=== PATIENT | female | born 1965 | race Caucasian/White ===

== ENCOUNTER 2017-07-03 09:13 | Outpatient (CLI) ==
--- NOTE | 2017-07-03 09:44 | DI ---
EXAM: Two views of the chest. History: Chronic obstructive pulmonary disease, history smoking Comparison: Chest radiograph 03/07/2014 Findings: Heart size is normal. Minimal infiltrates are seen within the right middle lobe and lingul a probably chronic in nature. Hyperinflation with increase in retrosternal clear space. No appreciab le pleural fluid and no pneumothorax. No acute osseous abnormalities. Impression: 1. Emphysema. 2. Minimal right middle lobe and lingular infiltrates probably related to a chronic infectious or in flammatory process. Consider mycobacterial avium infection
--- NOTE | 2017-07-03 09:54 | CT ---
EXAM: CT of the lumbar spine without contrast History: Right-sided back pain. Technique: Multiplanar CT images through the lumbar spine were obtained without the administration o f IV contrast Findings: Punctate 1 mm nonobstructing bilateral renal calculi. Partially visualized benign fat cont aining lesion within the superior pole of the left kidney. No acute fracture or subluxation of the lumbar spine. Mild multilevel degenerative disc space narrow ing with a few small anterior osteophytes. Partial sacralization of L6 on the right. There are six l umbar type vertebral bodies . L1-L2: No significant disc bulge, central canal stenosis or neural foraminal narrowing. L2-L3: No significant disc bulge, central canal stenosis or neural foraminal narrowing. L3-L4: No significant disc bulge, central canal stenosis or neural foraminal narrowing. L4-L5: Small disc bulge effacing the anterior thecal sac with no significant central canal stenosis or bony neural foraminal narrowing. L5-L6: Small disc bulge effacing the anterior thecal sac with no significant central canal stenosis. Mild to moderate bilateral bony neural foraminal narrowing secondary to ligamentous and facet hyper trophy. L6, S1: No significant disc bulge or central canal stenosis. There is thickening of the exiting left nerve root.. Mild to moderate bilateral neural foraminal narrowing. Impression: 1. No acute osseous abnormality of the lumbar spine. 2. Partial sacralization of L6 on the right. 3. Level by level analysis as detailed above. 4. Thickening of the exiting left sided nerve root at L6, S1 could represent peripheral nerve sheath tumor and recommend further evaluation with MRI
== END 2017-07-03 09:14 | disposition home or self-care (01) ==
LOC: RAD 09:13
PROVIDERS: ATTEND Internal Medicine
DX: M54.41 Lumbago with sciatica, right side (principal); J44.9 Chronic obstructive pulmonary disease, unspecified; F17.210 Nicotine dependence, cigarettes, uncomplicated

== ENCOUNTER 2017-07-13 08:27 | Outpatient (CLI) ==
[2017-07-13 09:05] LABS: CREATININE 0.78 mg/dL (0.60-1.30)
--- NOTE | 2017-07-13 10:28 | CT ---
EXAM: CT chest with contrast. HISTORY: Chronic obstructive pulmonary disease. Shortness of breath. COMPARISON: Radiograph 07/03/2017. Chest CT 04/21/2008. TECHNIQUE: Multiple axial images of the chest were obtained following intravenous administration of 75 mL of Omnipaque 350, low osmolar. Images were reformatted in the sagittal and coronal planes. FINDINGS: No mediastinal, hilar, or axillary lymphadenopathy identified. Heart size is normal. The re is no pericardial effusion. Centrilobular and paraseptal emphysematous changes are present, greatest in the upper lobes. Bronchi al thickening and nodular densities are seen in the right middle lobe and to a lesser extent the ermelinda cent anterior right upper lobe and the lingula. No pleural effusion or pneumothorax detected. Limited images of the upper abdomen demonstrate hepatic cystic lesions measuring up to 1 cm on axial images 54 and 55. No acute osseous abnormality detected. IMPRESSION: 1. Bronchial thickening and nodular densities in the right middle lobe, right upper lobe and lingula most likely infectious or inflammatory. Consider follow-up CT in 3-6 months for reassessment. 2. Emphysema. 3. Probable hepatic cysts. Correlate with ultrasound.
== END 2017-07-13 08:28 | disposition home or self-care (01) ==
LOC: RAD 08:27
PROVIDERS: ATTEND Internal Medicine
DX: J44.9 Chronic obstructive pulmonary disease, unspecified (principal); M54.9 Dorsalgia, unspecified; R93.7 Abnormal findings on diagnostic imaging of other parts of musculoskeletal system
CPT/HCPCS: 36415; 82565

== ENCOUNTER 2017-07-26 00:25 | Inpatient (IN) ==
[2017-07-26] MEDS ORDERED: SODIUM CHLORIDE 1,000 ML IV STA (00:47)
[2017-07-26] MEDS ORDERED: DUONEB NEB STA (00:48)
[2017-07-26] MEDS ORDERED: ROCEPHIN 1 GM in SODIUM CHLORIDE 50 ML IV STA (00:48)
[2017-07-26] MEDS ORDERED: MORPHINE 2 MG/ML SYRINGE IVP STA (00:50)
[2017-07-26] MEDS ORDERED: TORADOL IVP STA (00:50)
[2017-07-26] MEDS ORDERED: DUONEB NEB ONE ×3 (00:50→05:00)
[2017-07-26] MEDS ORDERED: ROCEPHIN ONE (01:19)
--- NOTE | 2017-07-26 03:34 | CT ---
EXAM: CT pulmonary angiogram. HISTORY: Chest pain. Cough. Evaluate for pulmonary embolism. PROCEDURE: After the intravenous injection of contrast a CT pulmonary angiogram was performed with c ontiguous axial CT images of the chest and multiplanar and 3-D reformats. FINDINGS: Comparison made with CT chest of 07/13/2017. There is normal enhancement of the pulmonary arteries with no evidence of pulmonary embolism. The heart is within normal limits in size. The tho racic aorta is within normal limits in diameter. The mediastinum is normal in appearance. There are emphysematous changes throughout both lungs. There is biapical scarring. There are right upper lobe and right middle lobe infiltrates and consolidation consistent with pneumonia. There is minimal ling ular and bibasilar atelectasis. The bones and soft tissues are unremarkable. There are fluid density cysts in the liver. The adrenal glands are normal in appearance. There is left renal cortical scarr ing. Impression: Right upper lobe and right middle lobe infiltrates and consolidation consistent with pne umonia. Minimal lingular and bibasilar atelectasis. Chronic obstructive pulmonary disease.
--- NOTE | 2017-07-26 03:47 | ED.PDOC ---
General ED Provider: Dr. MABEL HAQ-ER Chief Complaint: Respiratory Complaint Stated Complaint: i just finished a zpack and now hurting on the right side Time Seen by Physician: 00:30 Mode of Arrival: Walk-In Information Source: Patient, Family Exam Limitations: No limitations Primary Care Provider: NAHOMY HANEY Nursing and Triage Documentation Reviewed and Agree: Yes Reviewed sepsis parameters & appropriate labs ordered?: Yes System Inflammatory Response Syndrome: Not Applicable Sepsis Protocol: For patient's 13 years and over: Temp is 96.8 and below OR 101 and greater Pulse >90 BPM Resp >20/minute Acutely Altered Mental Status Are patient's symptoms suggestive of a new infection, such as: -Pneumonia -Skin, Soft Tissue -Endocarditis -UTI -Bone, Joint Infection -Implantable Device -Acute Abdominal Infection -Wound Infection -Meningitis -Blood Stream Catheter Infection -Unknown Respiratory Complaint Exam - Respiratory Complaint/Exam Onset/Duration: 24 hrs Symptoms Are: Still present Timing: Constant Initial Severity: Mild Current Severity: Moderate Location: Chest Character: Reports: Non-productive cough Aggravating: Reports: URI Alleviating: Reports: None Associated Signs and Symptoms: Reports: Chest pain, Pleuritic chest pain, URI, Nasal congestion, Decreased oral intake. Denies: Rapid breathing, Dyspnea, Fever, Chills, Wheezing, Hemoptysis, Dizziness, Calf pain, Calf swelling, Edema , Hoarseness, Sinus discomfort, Vomiting, Sore throat, Weight loss, Increased thirst, Increased appetite, Increased urination Related History: Reports: Similar episode History of Healthcare-Acquired Pneumonia: No Pulmonary Embolism Risk Factors: Smoking Cardiac Risk Factors: Reports: Smoking Pseudomonas Risk Factors: Reports: None Status Asthmaticus Risk Factors: Reports: None Home Oxygen Use: No Recent Stress Test: No Recent Echo/LV Function: No Current Antibiotic Use: No Current Asthma Medication Use: No Respiratory Distress: None Inadequate Respiratory Effort: No Dysphagia Present: No Stridor Present: No JVD Present: No Accessory Muscle Use: No Retractions: Not Present Diminished Breath Sounds: No Sinus Tenderness: None Grunting Respirations: No Kussmaul Respirations: No Differential Diagnoses: Chest Wall Pain, Pneumonia, Bronchitis Non-Traumatic Chest Pain Syncope: EKG Performed Review of Systems - Review Of Systems Constitutional: Reports: No symptoms Eyes: Reports: No symptoms Ears, Nose, Mouth, Throat: Reports: No symptoms Respiratory: Reports: Cough Cardiac: Reports: Chest pain GI: Reports: No symptoms : Reports: No symptoms Musculoskeletal: Reports: No symptoms Skin: Reports: No symptoms Neurological: Reports: No symptoms Endocrine: Reports: No symptoms Hematologic/Lymphatic: Reports: No symptoms All Other Systems: Reviewed and Negative Past Medical History - Past Medical History Previously Healthy: No Endocrine: Reports: Unknown Cardiovascular: Reports: Unknown Respiratory: Reports: Unknown Hematological: Reports: Unknown Gastrointestinal: Reports: Unknown Genitourinary: Reports: Unknown Neuro/Psych: Reports: Unknown Musculoskeletal: Reports: Unknown Cancer: Reports: Unknown Last Menstrual Period: HYSTERECTOMY - Surgical History General Surgical History: Reports: Unknown - Family History Family History: Reports: Unknown - Social History Smoking Status: Current every day smoker, Heavy tobacco smoker Hx Substance Use: No Alcohol Screening: None Lives: With family - Immunizations Tetanus Shot up to Date: Yes Physical Exam - Physical Exam Appearance: Well-appearing Pain Distress: Mild Eyes: RAFFI, EOMI, Conjunctiva clear ENT: Ears normal, Nose normal, Oropharynx normal Neck: Supple Respiratory: Airway patent, Breath sounds clear, Breath sounds equal, Respirations nonlabored Cardiovascular: RRR, Pulses normal, No rub, No murmur GI/: Soft, Nontender, No masses, Bowel sounds normal, No Organomegaly Musculoskeletal: Normal strength, ROM intact, No edema, No calf tenderness Skin: Warm, Dry, Normal color Neurological: Sensation intact, Motor intact, Reflexes intact, Cranial nerves intact, Alert, Oriented Psychiatric: Affect appropriate, Mood appropriate Interpretation - Radiology Interpretation Radiology Interpretation By: Radiologist Radiology Results: Positive Exam Interpreted: CT Scan - EKG Interpretation Time of EKG #1: 03:47 Rate: Normal Rhythm: Sinus Ectopy: None [place]: NL ST Segment: Normal Physician Notification - Case Discussed Physician Notified: dr haney Time of Notification: 03:50 Critical Care Note - Critical Care Note Total Time (mins): 0 Course - Course Hematology/Chemistry: 07/26/17 01:30 07/26/17 01:30 Orders, Labs, Meds: Lab Review 07/26/17 07/26/17 07/26/17 00:45 01:30 01:30 WBC 11.40 H RBC 3.44 L Hgb 11.2 L Hct 32.8 L MCV 95.3 MCH 32.6 H MCHC 34.1 RDW Coeff of Jama 13.2 Plt Count 355 Immature Gran % (Auto) 0.6 Neut % (Auto) 57.3 Lymph % (Auto) 32.6 [place] % (Auto) 8.2 Eos % (Auto) 0.8 Baso % (Auto) 0.5 Immature Gran # (Auto) 0.1 Neut # 6.5 Lymph # 3.7 H [place] # 0.9 Eos # 0.1 Baso # 0.1 Puncture Site Rrad O2 Saturation 98.0 ABG pH 7.490 H ABG pCO2 34.7 L ABG pO2 100.0 ABG HCO3 26.4 H ABG Total CO2 27 ABG Base Excess 3 H Nils Test + FiO2 % 21.0 Sodium 141 Potassium 3.3 L Chloride 104 Carbon Dioxide 24 Anion Gap 16.3 BUN 15 Creatinine 0.92 Estimated GFR (MDRD) 64.00 BUN/Creatinine Ratio 16.30 Glucose 118 H Calcium 9.7 Total Bilirubin < 0.3 AST 11 L ALT 12 Alkaline Phosphatase 77 Total Creatine Kinase 40 Troponin I < 0.0100 Total Protein 7.9 Albumin 3.5 Globulin 4.4 Albumin/Globulin Ratio 0.80 Urine Color Urine Clarity Urine pH Ur Specific [place] Urine Protein Urine Glucose (UA) Urine Ketones Urine Blood Urine Nitrite Urine Bilirubin Urine Urobilinogen Ur Leukocyte Esterase Influenza A (Rapid) Influenza B (Rapid) 07/26/17 07/26/17 02:03 02:41 WBC RBC Hgb Hct MCV MCH MCHC RDW Coeff of [place] Plt Count Immature Gran % (Auto) Neut % (Auto) Lymph % (Auto) [place] % (Auto) Eos % (Auto) Baso % (Auto) Immature Gran # (Auto) Neut # Lymph # [place] # Eos # Baso # Puncture Site O2 Saturation ABG pH ABG pCO2 ABG pO2 ABG HCO3 ABG Total CO2 ABG Base Excess [place]ils Test FiO2 % Sodium Potassium Chloride Carbon Dioxide Anion Gap BUN Creatinine Estimated GFR (MDRD) BUN/Creatinine Ratio Glucose Calcium Total Bilirubin AST ALT Alkaline Phosphatase Total Creatine Kinase Troponin I Total Protein Albumin Globulin Albumin/Globulin Ratio Urine Color Yellow Urine Clarity Clear Urine pH 7.0 Ur Specific [place] 1.010 Urine Protein Negative Urine Glucose (UA) Negative Urine Ketones Negative Urine Blood Negative Urine Nitrite Negative Urine Bilirubin Negative Urine Urobilinogen 0.2 Ur Leukocyte Esterase Negative Influenza A (Rapid) Negative Influenza B (Rapid) Negative Orders Category Date Time Status ABG DRAW REQUEST Stat CARDIO 07/26/17 00:46 Completed EKG-(ED ONLY) Stat CARDIO 07/26/17 00:45 Completed NEBULIZER TREATMENT Stat CARDIO 07/26/17 00:49 Completed NPO REMINDER: IMAGING ONCE CARE 07/26/17 00:48 Completed IV [ED IV/MEDIPORT/POWERPORT] .ONCE EMERGENCY 07/26/17 00:47 Active ABG Stat LAB 07/26/17 00:45 Completed BLOOD CULTURE (ED ONLY) Stat LAB 07/26/17 01:30 Received CBC W/ AUTO DIFF Stat LAB 07/26/17 01:30 Completed COMPREHENSIVE METABOLIC PANEL Stat LAB 07/26/17 01:30 Completed CREATINE KINASE Stat LAB 07/26/17 01:30 Completed MOLECULAR GROUP A STREP Stat LAB 07/26/17 02:31 Results RAPID FLU A/B Stat LAB 07/26/17 02:41 Completed STREP SCREEN Stat LAB 07/26/17 02:31 Results TROPONIN I Stat LAB 07/26/17 01:30 Completed URINALYSIS C & S IF INDICATED Stat LAB 07/26/17 02:03 Completed 0.9 % Sodium Chloride [Saline Flush] MEDS 07/26/17 00:47 Ordered 1 syr IVF PRN PRN Ceftriaxone Sodium [Rocephin] MEDS 07/26/17 01:19 Discontinued 1 gm .ROUTE .STK-MED ONE Ceftriaxone Sodium [Rocephin] 1 gm MEDS 07/26/17 00:48 Discontinued 0.9 % Sodium Chloride [Sodium Chloride] 50 ml IV ONCE Ipratropium/Albuterol Neb [Duoneb] MEDS 07/26/17 00:50 Discontinued 1 vial NEB .STK-MED ONE Ipratropium/Albuterol Neb [Duoneb] MEDS 07/26/17 00:48 Discontinued 1 vial NEB ONCE STA Ketorolac Tromethamine [Toradol] MEDS 07/26/17 00:50 Discontinued 30 mg IVP ONCE STA Morphine Sulfate [Morphine 2 mg/ml Syringe] MEDS 07/26/17 00:50 Discontinued 2 mg IVP ONCE STA Sodium Chloride 0.9% [Sodium Chloride] 1,000 ml MEDS 07/26/17 00:47 Active IV 100 mls/hr CT CHEST PE PROTOCOL Stat RADS 07/26/17 00:47 Completed Medications Generic Name Dose Route Start Last Admin Trade Name Freq PRN Reason Stop Dose Admin Sodium Chloride 1,000 mls @ 100 mls/hr 07/26/17 00:47 07/26/17 01:34 Sodium Chloride IV 07/26/17 10:46 100 mls/hr .Q10H STA Administration Sodium Chloride 1 syr 07/26/17 00:47 07/26/17 01:34 Saline Flush IVF 1 syr PRN PRN Administration To flush IV Discontinued Medications Generic Name Dose Route Start Last Admin Trade Name Freq PRN Reason Stop Dose Admin Albuterol/Ipratropium 1 vial 07/26/17 00:48 07/26/17 01:07 Duoneb NEB 07/26/17 00:49 1 vial ONCE STA Administration Ceftriaxone Sodium 1 gm/ 50 mls @ 75 mls/hr 07/26/17 00:48 07/26/17 01:34 Sodium Chloride IV 07/26/17 01:27 75 mls/hr ONCE STA Administration Ketorolac Tromethamine 30 mg 07/26/17 00:50 07/26/17 01:34 Toradol IVP 07/26/17 00:51 30 mg ONCE STA Administration Morphine Sulfate 2 mg 07/26/17 00:50 07/26/17 01:34 Morphine 2 Mg/Ml Syringe IVP 07/26/17 00:51 2 mg ONCE STA Administration Vital Signs: Temp Pulse Resp BP Pulse Ox 07/26/17 00:26 97.8 F 73 18 114/80 97 Departure - Departure Time of Disposition: 03:50 Disposition: HOME SELF-CARE Discharge Problem: Pneumonia Qualifiers: Pneumonia type: due to unspecified organism Laterality: right Lung location: unspecified part of lung Qualified Code(s): J18.9 - Pneumonia, unspecified organism Instructions: Community Acquired Pneumonia (ED) Condition: Good Pt referred to PMD for follow-up: Yes Allergies/Adverse Reactions: Allergies No Known Allergies Allergy (Unverified 07/26/17 00:29) Home Medications: Ambulatory Orders Alprazolam [Xanax] 0.25 mg PO BID 07/26/17 Hydrocodone Bit/Acetaminophen [Lortab 5-500] 1 tab PO PRN PRN 07/26/17 Disposition Discussed With: Patient, Family
[2017-07-26] MEDS ORDERED: TYLENOL PO PRN (03:52)
[2017-07-26] MEDS ORDERED: NON-FORMULARY MEDICATION (Hydrocodone Bit/Acetaminophen 1 TAB) PO PRN (03:56)
[2017-07-26 04:59] VITALS: BMI 18.4
[2017-07-26] MEDS: DUONEB NEB SCH ×4 (05:00→23:55)
[2017-07-26] MEDS ORDERED: NON-FORMULARY MEDICATION (Hydrocodone Bit/Acetaminophen 1 TAB) PO SCH (09:00)
[2017-07-26] MEDS: ZITHROMAX PO SCH (10:22)
[2017-07-26] MEDS: XANAX PO SCH ×2 (10:22→21:25)
[2017-07-26] MEDS: LOVENOX SUBCUT SCH (10:23)
[2017-07-26] MEDS: SOLU-MEDROL 40 MG IVP SCH ×2 (10:23→21:25)
[2017-07-26] MEDS ORDERED: NORCO 5-325 ONE (10:59)
[2017-07-26] MEDS: ROCEPHIN 1 GM in SODIUM CHLORIDE 50 ML IV SCH (21:25)
[2017-07-26] MEDS: NORCO 5-325 PO SCH (21:25)
[2017-07-27] MEDS: DUONEB NEB SCH ×4 (04:24→23:22)
[2017-07-27] MEDS: LOVENOX SUBCUT SCH ×2 (08:22→08:24)
[2017-07-27] MEDS: ZITHROMAX PO SCH (08:22)
[2017-07-27] MEDS: XANAX PO SCH ×2 (08:22→20:34)
[2017-07-27] MEDS: NORCO 5-325 PO SCH ×2 (08:22→20:34)
[2017-07-27] MEDS: SOLU-MEDROL 40 MG IVP SCH ×2 (08:23→20:33)
[2017-07-27] MEDS: ROCEPHIN 1 GM in SODIUM CHLORIDE 50 ML IV SCH (20:33)
[2017-07-28] MEDS: DUONEB NEB SCH ×2 (06:24→11:15)
[2017-07-28] MEDS: XANAX PO SCH (08:56)
[2017-07-28] MEDS: NORCO 5-325 PO SCH (08:56)
[2017-07-28] MEDS: ZITHROMAX PO SCH (08:56)
[2017-07-28] MEDS: SOLU-MEDROL 40 MG IVP SCH (08:56)
[2017-07-28] MEDS: LOVENOX SUBCUT SCH (08:57)
--- NOTE | 2017-07-28 10:30 | DI ---
EXAM: Chest two view, frontal and lateral views. HISTORY: Pneumonia. COMPARISON: 07/26/2017. FINDINGS: Heart size is normal. There is no vascular congestion. Right upper lobe perihilar and mi ddle lobe consolidation again noted. Left lung is clear. No pleural effusion or pneumothorax identi fied. Osseous structures are intact. IMPRESSION: Stable right lung consolidation. Continued follow-up in 4-6 weeks recommended for reassessment.
--- NOTE | 2017-07-28 10:38 | PCM.PROG ---
Attending Provider: ATTENDING PROVIDER: Dr. NAHOMY LANG DATE OF SERVICE: 07/28/17 SUBJECTIVE: This 51 year old WHITE/ F was hospitalized 07/26/17. The patient is hospitalized with pneumonia. Condition has improved. REVIEW OF SYSTEMS: CONSTITUTIONAL: No night sweats. No fatigue, malaise, lethargy. No fever or chills. HEENT: Eyes: No visual changes. No eye pain. No eye discharge. ENT: No runny nose. No epistaxis. No sinus pain. No odynophagia. No congestion. RESPIRATORY: Occasional cough and congestion. No hemoptysis. No shortness of breath. CARDIOVASCULAR: No angina symptoms. No CHF symptoms. No atypical chest pain for CAD. No palpitations. No orthopnea.. GASTROINTESTINAL: No abdominal pain. No nausea or vomiting. No diarrhea or constipation. No hematemesis. No hematochezia. GENITOURINARY: No urgency. No frequency. No dysuria. No hematuria. No obstructive symptoms. No discharge. No pain. No significant abnormal bleeding. MUSCULOSKELETAL: No musculoskeletal pain; no joint swelling. NEUROLOGICAL: Awake, alert, oriented to time, place and person. No headache. No neck pain. No syncope. No seizures. No dizziness. PSYCHIATRIC: Not anxious. No depression. No suicidal thoughts. No homicidal thoughts. SKIN: No rash. No lesions. No wounds. ENDOCRINE: No unexplained weight loss. No weight gain. HEMATOLOGIC/LYMPHATIC: No anemia. No purpura. No petechiae. No prolonged or excessive bleeding. No palpable lymph nodes. PHYSICAL EXAMINATION: GENERAL: The patient is awake, alert and oriented, lying in bed in no distress. VITAL SIGNS: Temperature 97.4 F, Pulse 94, Respiratory Rate 16, BP 99/63, Pulse Ox 95% HEENT: Head normocephalic, atraumatic. Eyes: Extraocular muscles are intact. Pupils are equal, round and reactive to light and accommodation. Ears: No lesions. Nose appeared normal. Throat: No exudate or erythema. NECK: Supple. No JVD, no carotid bruit. No lymphadenopathy or thyromegaly. LUNGS: Decreased breath sounds. Clear to auscultation. Percussion note normal. Chest symmetrical. HEART: S1, S2, no S3. No murmurs. No cyanosis or clubbing. No ascites. Pulses: Dorsalis pedis and posterior tibial pulses +1 to +2 both sides. ABDOMEN: Soft. Non-tender. Bowel sounds active. No CVA tenderness. No mass felt. EXTREMITIES: No edema. Full range of motion of all extremities, equal. NEUROLOGIC: No focal deficit. Cranial nerves II through XII are grossly intact. No headache, no double vision or headache. SKIN: Not dry. Intact. Turgor-normal. LYMPHATIC: No palpable lymph nodes/no lymphedema. MUSCULOSKELETAL: Normal joints with no swelling. Muscle tone is normal. LAB REVIEW: 07/28/17 05:57 07/28/17 05:57 07/28/17 05:57: Sodium 143, Potassium 4.6, Chloride 111 H, Carbon Dioxide 24, Anion Gap 12.6, BUN 15, Creatinine 0.74, Estimated GFR (MDRD) 82.00, BUN/ Creatinine Ratio 20.27, Glucose 138 H, Calcium 9.1, Total Bilirubin < 0.3, AST 15, ALT 15, Alkaline Phosphatase 56, Total Protein 6.2 L, Albumin 2.9 L, Globulin 3.3, Albumin/Globulin Ratio 0.88 07/28/17 05:57: WBC 14.38 H, RBC 3.02 L, Hgb 9.8 L, Hct 29.2 L, MCV 96.7, MCH 32.5 H, MCHC 33.6, RDW Coeff of Jama 14.1, Plt Count 376, Immature Gran % (Auto) 1.7, Neut % (Auto) 85.6, Lymph % (Auto) 9.5 L, [place] % (Auto) 3.1, Eos % (Auto) 0.0, Baso % (Auto) 0.1, Immature Gran # (Auto) 0.3, Neut # 12.3 H, Lymph # 1.4, [place] # 0.4, Eos # 0.0, Baso # 0.0 ASSESSMENT: 1. Pneumonia resolved 2. Chronic lung disease 3. Smoker 4. Anxiety syndrome PLAN: 1. D/C home 2. Advised to quit smoking 3. Keflex 500 mg t.i.d. for 7 days 4. Prednisone 10 mg one a day for 7 days 5. Albuterol nebs q.i.d. 6. Will see the patient back in the office in 2 to 3 days Plan and coordination of the patient's care discussed in the presence of Tank Erector and nurse. EDUCATION: Counseling for smoking done. CONDITION: Stable SCRIBED BY: OLIVE GONZALES Medical Customer Service Representative scribed while in presence of service performed by Dr. NAHOMY LANG on 07/28/17 ([id number])
[2017-07-28 10:43] VITALS: BP 111/56; TEMP 97.7
--- NOTE | 2017-07-28 11:12 | CM.DICTOOL ---
ADMISSION: 07/26/17 03:54 DISCHARGE: 07/28/17 DATE OF SERVICE: 07/28/17 FINAL DIAGNOSIS COMMUNITY ACQUIRED PNEUMONIA, RIGHT UPPER AND RIGHT MIDDLE LOBES COPD ANEMIA OSTEOPOROSIS, L-SPINE AND BILATERAL HIPS HYSTERECTOMY CHOLECYSTECTOMY CURRENT EVERY DAY SMOKER LAST VITALS Temp Pulse Resp BP Pulse Ox 97.7 F 68 18 111/56 L 98 07/28/17 10:00 07/28/17 10:00 07/28/17 10:00 07/28/17 10:00 07/28/17 10:00 ACTIVE HOME MEDICATIONS Acetaminophen/Hydrocodone Bitart (Lewis 5-325) 1 tab PO BID [facility] Last Admin: 07/28/17 08:56 Dose: 1 tab Alprazolam (Xanax) 0.25 mg PO BID [facility] Last Admin: 07/28/17 08:56 Dose: 0.25 mg ALLERGIES No Known Allergies Allergy (Unverified 07/26/17 00:29) NEW PRESCRIPTIONS: PREDNISONE 10 MG, TAKE ONE TABLET BY MOUTH WITH FOOD FOR 7 DAYS KEFLEX 500 MG, TAKE ONE TABLET BY MOUTH THREE TIMES DAILY FOR 7 DAYS ALBUTEROL 0.083%/3ML VIAL, TAKE ONE NEBULIZED TREATMENT FOUR TIMES DAILY SMOKING: THE PATIENT IS CURRENTLY AN EVERYDAY SMOKER. SHE HAS RECEIVED INFORMATION REGARDING THE BENEFITS OF SMOKING CESSATION. SHE IS ALSO AWARE OF THE ADDED RISK TO HER CARDIOPULMONARY HEALTH WITH CONTINUATION OF THIS HABIT. TODAY SHE VERBALIZED HER INTENT TO STOP SMOKING. ENCOURAGEMENT WILL CONTINUE TO BE PROVIDED IN THE OUTPATIENT SETTING. DISEASE SPECIFIC EDUCATION: COMMUNITY ACQUIRED PNEUMONIA PLEURITIC PAIN HOME MEDICATIONS NEW PRESCRIPTIONS RISK FACTORS ASSOCIATED WITH INTERMEDIATE STEROID USE ACTIVITY FOLLOW UP LAB REVIEW: 07/28/17 05:57 07/28/17 05:57 07/28/17 05:57: Sodium 143, Potassium 4.6, Chloride 111 H, Carbon Dioxide 24, Anion Gap 12.6, BUN 15, Creatinine 0.74, Estimated GFR (MDRD) 82.00, BUN/ Creatinine Ratio 20.27, Glucose 138 H, Calcium 9.1, Total Bilirubin < 0.3, AST 15, ALT 15, Alkaline Phosphatase 56, Total Protein 6.2 L, Albumin 2.9 L, Globulin 3.3, Albumin/Globulin Ratio 0.88 07/28/17 05:57: WBC 14.38 H, RBC 3.02 L, Hgb 9.8 L, Hct 29.2 L, MCV 96.7, MCH 32.5 H, MCHC 33.6, RDW Coeff of Jama 14.1, Plt Count 376, Immature Gran % (Auto) 1.7, Neut % (Auto) 85.6, Lymph % (Auto) 9.5 L, [place] % (Auto) 3.1, Eos % (Auto) 0.0, Baso % (Auto) 0.1, Immature Gran # (Auto) 0.3, Neut # 12.3 H, Lymph # 1.4, [place] # 0.4, Eos # 0.0, Baso # 0.0 PLAN: DISCHARGE HOME TODAY RETURN TO SEE DR. LANG IN 2-3 DAYS. PLEASE PHONE HIS OFFICE TO SCHEDULE YOUR FOLLOW UP APPOINTMENT ([phone]) RESUME YOUR HOME MEDICATIONS PER LIST PROVIDED BY THE NURSING STAFF NEW PRESCRIPTIONS PREDNISONE 10 MG, TAKE ONE TABLET BY MOUTH WITH FOOD FOR 7 DAYS KEFLEX 500 MG, TAKE ONE TABLET BY MOUTH THREE TIMES DAILY FOR 7 DAYS ALBUTEROL 0.083%/3ML VIAL, TAKE ONE NEBULIZED TREATMENT FOUR TIMES DAILY ACTIVITY GET PLENTY OF REST AT HOME. GRADUALLY INCREASE YOUR ACTIVITY LEVEL ACCORDING TO YOUR TOLERATION STOP SMOKING DIET HEALTHY HEART SUMMARY THE PATIENT IS ALERT AND ORIENTED X3. SHE CURRENTLY RESIDES AT HOME WITH HER SPOUSE. SHE IS INDEPENDENT WITH ADL'S AND HAS NOT REQUIRED HOME HEALTH OR HOMEMAKING SERVICES. SHE HAS A NEBULIZER THAT IS NOT IN USE AT THIS TIME. SHE DESIRES TO RETURN TO HER HOME AT DISCHARGE. SKIN TURGOR IS INTACT. THERE ARE NO DECUBITUS ULCERS PRESENT AT DISCHARGE. NUTRITIONAL AND HYDRATION STATUS ARE GOOD. THE PATIENT IS PAIN FREE AND AFEBRILE. SHE IS AWARE AND AGREEABLE FOR TODAY'S DISCHARGE PLANS. CURRENT CODE STATUS FULL CODE NAHOMY LANG M.D.
--- NOTE | 2017-08-13 14:40 | DS ---
DATE OF SERVICE: 07/28/17 FINAL DIAGNOSIS: 1. COMMUNITY ACQUIRED PNEUMONIA, RIGHT UPPER AND RIGHT MIDDLE LOBES 2. COPD 3. ANEMIA 4. OSTEOPOROSIS, L-SPINE AND BILATERAL HIPS 5. HYSTERECTOMY 6. CHOLECYSTECTOMY 7. CURRENT EVERY DAY SMOKER DISCHARGE INSTRUCTIONS: Return to see Dr. Dumont in 2 to 3 days. Please phone his office to schedule your follow up appointment ([phone]) MEDICATIONS AT DISCHARGE: Acetaminophen/Hydrocodone ([place] 5-325) one tab p.o. b.i.d. [facility] Xanax 0.25 mg p.o. b.i.d. [facility] NEW PRESCRIPTIONS: Prednisone 10 mg take one tablet p.o. with food for 7 days Keflex 500 mg one p.o. three times per day for 7 days Albuterol 0.083%/3mL vial take one nebulized treatment four times daily DIET INSTRUCTIONS: Healthy Heart ACTIVITY: Get plenty of rest at home. Gradually increase your activity level according to your toleration. SMOKING: The patient is currently an every day smoker. She has received information regarding the benefits of smoking cessation. She is also aware of the added risk to her cardiopulmonary health with continuation of this habit. Today she verbalized her intent to stop smoking. Encouragement will continue to be provided int he outpatient setting. DISEASE SPECIFIC EDUCATION: Community acquired pneumonia Pleuritic pain Home medications New prescriptions Risk factors associated with long-term steroid use Activity Followup HOSPITAL COURSE: 51-year-old white female hospitalized with bilateral pneumonia. The patient was in mild respiratory distress with wheezing but she, as usual, underplays her symptoms. The patient was treated in the hospital with IV antibiotics, Zithromax and Rocephin. Also was put on Solu-Medrol 40 mg twice a day. Nebs treatments were given. Counseling for smoking was done. The patient had repeat chest x-ray. The reports were pending but clinically she had improved so much that she was ready to go. She was up and about, afebrile for nearly 36 hours. She had practically no cough. Her appetite had improved. Her hydration status improved. The patient was discharged on Keflex and steroids. CONDITION AT TIME OF DISCHARGE: Stable. TIME SPENT: More than [address] [facility]
--- NOTE | 2017-08-13 14:42 | PN ---
CODING FOR BILLING 07/26/17 LEVEL 5 07/27/17 INTERMEDIATE 07/28/17 DISCHARGE MTDD
--- NOTE | 2017-08-14 14:54 | HP ---
DATE OF SERVICE: 07/26/17 REASON FOR HOSPITALIZATION: Pneumonia HISTORY OF PRESENT ILLNESS: 51-year-old white female came to the emergency room with flu-type of symptoms. The patient, on further workup, was found to have pneumonia. The patient's symptoms duration nearly 7 to 8 days. The patient has been on Z-Pack and she finished it the day prior to coming to the emergency room. The patient's condition had stayed the same, it had not deteriorated but after stopping the Z- pack, the condition worsened so she decided to come to the emergency room with cough, congestion. PAST MEDICAL HISTORY: Smoking Chronic lung disease Anxiety syndrome Generalized osteoarthritis PAST SURGICAL HISTORY: REVIEW OF SYSTEMS: CONSTITUTIONAL: Weakness and fatigue. No night sweats. No fever or chills. HEENT: Eyes: No visual changes. No eye pain. No eye discharge. ENT: No runny nose. No epistaxis. No sinus pain. No sore throat. No odynophagia. No ear pain. No congestion. RESPIRATORY: Cough and congestion. No hemoptysis. No shortness of breath. No PND. CARDIOVASCULAR: No angina symptoms. No CHF symptoms. No atypical chest pain for CAD. No palpitations. No orthopnea. GASTROINTESTINAL: No abdominal pain. No nausea or vomiting. No diarrhea or constipation. No hematemesis. No hematochezia. GENITOURINARY: No urgency. No frequency. No dysuria. No hematuria. No obstructive symptoms. No discharge. No pain. No significant abnormal bleeding. MUSCULOSKELETAL: No musculoskeletal pain. No joint swelling. No arthritis. NEUROLOGICAL: No headache. No neck pain. No syncope. No seizures. No dizziness. PSYCHIATRIC: Not anxious. No depression. No suicidal thoughts. No homicidal thoughts. SKIN: No rash. No lesions. No wounds. ENDOCRINE: No unexplained weight loss. No weight gain. HEMATOLOGIC/LYMPHATIC: No anemia. No purpura. No petechiae. No prolonged or excessive bleeding. No palpable lymph nodes. PERSONAL/FAMILY/SOCIAL HISTORY: The patient is . Smoker - smokes more than one pack per day. No alcohol abuse. Does all activities of daily living. Lives with . MEDICATIONS: Xanax 0.25 mg twice a day [place] 5/500 p.r.n. ALLERGIES: NKDA PHYSICAL EXAMINATION: GENERAL: The patient is oriented to time, place and person. VITAL SIGNS: Temperature 97.6, pulse 60, respiratory rate 16, BP 114/80, pulse ox 96%. HEENT: Head normocephalic, atraumatic. Eyes: Extraocular muscles are intact. Pupils are equal, round and reactive to light and accommodation. Ears: No lesions. Nose appeared normal. Throat: No exudate or erythema. Mucous membranes dry. NECK: Supple. No JVD, no carotid bruit. No lymphadenopathy or thyromegaly. LUNGS: Decreased breath sounds with mild wheeze. Percussion note normal. Chest symmetrical. HEART: S1, S2, no S3. No murmurs. No cyanosis or clubbing. No ascites. Pulses: Dorsalis pedis and posterior tibial pulses +1 to +2 both sides. ABDOMEN: Soft. Nontender. Bowel sounds active. No CVA tenderness. No mass felt. EXTREMITIES: No edema. Full range of motion of all extremities, equal. YOUTH LEADER: Normal mental status. No focal deficit. Cranial nerves II through XII are grossly intact. No headache, no double vision or headache. SKIN: Dry. Intact. Turgor - normal. LYMPHATIC: No palpable lymph nodes/no lymphedema. MUSCULOSKELETAL: Normal joints with no swelling. Muscle tone is normal. LABSz: Hemoglobin 11.2, hematocrit 32, WBC 11.40, normal differential. Creatinine 0.9, BUN 15, potassium 3.3. GFR 64 cc/min. Chest x-ray pneumonia. ASSESSMENT: 1. PNEUMONIA 2. CHRONIC LUNG DISEASE 3. SMOKING 4. ANXIETY SYNDROME PLAN: 1. TIME SPENT: More than 70 minutes. MTDD
== END 2017-07-28 12:00 | disposition home or self-care (01) | DRG 195 ==
LOC: ED 00:25 → MEDSURG B 03:54
PROVIDERS: ADMIT Internal Medicine; ATTEND Internal Medicine
DX: J18.9 Pneumonia, unspecified organism (principal); R07.81 Pleurodynia; J44.9 Chronic obstructive pulmonary disease, unspecified; D64.9 Anemia, unspecified; F41.8 Other specified anxiety disorders; M81.0 Age-related osteoporosis without current pathological fracture; F17.200 Nicotine dependence, unspecified, uncomplicated; Z90.710 Acquired absence of both cervix and uterus; Z90.49 Acquired absence of other specified parts of digestive tract
CPT/HCPCS: 36415; 80053; 81001; 82550; 82803; 84484; 85025; 87040; 87502; 87651; 87880; 93005; 93010; 94640; 96361; 96365; 96366; 96375; 99284

== ENCOUNTER 2017-07-31 08:00 | Outpatient (CLI) ==
--- NOTE | 2017-08-02 23:19 | MRI ---
EXAM: Lumbar spine MRI without contrast. HISTORY: Low back pain. COMPARISON: Lumbar spine CT scan 07/03/2017. TECHNIQUE: Multiplanar, multisequence MR images were acquired of the lumbar spine without contrast. FINDINGS: Five non-rib bearing lumbar vertebra are present. S1 is a transitional vertebra with a hy pertrophic pseudoarticulation between the right first and second sacral segments and left lumbarizati on. The lumbar vertebra are normal in height and intrinsic bone marrow signal. There is minor lumbar dextroscoliosis centered at L3-4. Minor lumbar ventral spondylosis is present. There is a rudiment calista intervertebral disc at S1-2. Conus medullaris ends low at L2-3. It has normal signal intensity. The partially visualized liver, spleen and right kidney are unremarkable. The left kidney has a foca l rounded 16.1 mm x 11.4 mm defect with bright T1 signal consistent with fat that may represent focal scarring or changes relate to previous surgery. L1-2: The intervertebral disc is normal. L2-3: There is a mild disc bulge with ventral spondylosis that minimally effaces the ventral thecal sac. Minor bilateral facet arthropathy and mild ligamentum flavum hypertrophy is present without for aminal stenosis. L3-4: The intervertebral disc is normal. There is minor right facet arthropathy and mild bilateral l igamentum flavum hypertrophy without foraminal stenosis. L4-5: The intervertebral disc is normal. There is minor bilateral facet arthropathy, greater on the left and mild bilateral ligamentum flavum hypertrophy. There is no central canal stenosis or forami nal stenosis. L5-S1: There is a minor disc bulge that minimally effaces the ventral thecal sac and mild bilateral facet arthropathy and ligamentum flavum hypertrophy. There is no central canal stenosis or foraminal stenosis. S1-2: There is a rudimentary intervertebral disc. Bilateral perineural cysts are present. There is a hypertrophic pseudoarticulation between the right first and second sacral segments and there is le ft lumbarization of S1. There is no central canal stenosis or foraminal stenosis. Bilateral Tarlov cysts are present at S2 and S3. IMPRESSION: 1. Minor lumbar degenerative spondylosis. 2. No lumbar disc herniations, central canal stenosis or foraminal stenosis. Pain. 3. Transitional spinal anatomy. S1 is a transitional vertebra with a right hypertrophic pseudoartic ulation and left lumbarization.
== END 2017-07-31 08:01 | disposition home or self-care (01) ==
LOC: RAD 08:00
PROVIDERS: ATTEND Internal Medicine
DX: J44.9 Chronic obstructive pulmonary disease, unspecified (principal); M54.9 Dorsalgia, unspecified; R93.7 Abnormal findings on diagnostic imaging of other parts of musculoskeletal system